=== PATIENT | male | born 1985 | race Caucasian/White ===

== ENCOUNTER 2021-10-10 20:12 | Emergency (ER) | payer SELFPAY ==
[~2021-10-10] VITALS: Ht 182.9 cm; Wt 80.4 kg
== END 2021-10-10 23:15 | disposition home or self-care (01) ==
LOC: ED 20:12
DX: R20.2 Paresthesia of skin (principal); Z88.0 Allergy status to penicillin
CPT/HCPCS: 36415; 70450; 72125; 80053; 81001; 83735; 85025

== ENCOUNTER 2023-09-22 11:33 | Emergency (ER) | payer OTHER ==
[2023-09-22] MEDS ORDERED: SODIUM CHLORIDE 0.9% 1,000 ML IV ONE (14:00)
[2023-09-22 14:06] LABS: BASOPHILS 0.4 % (0-2); HEMATOCRIT 41.2 % (35.0-50.0); HEMOGLOBIN 13.7 g/dL (12.0-18.0); LYMPHOCYTES 31.2 % (24-44); MCH 29.6 (27-36); MCHC 33.3 g/dl (30-36); MCV 88.9 fl (81-99); MONOCYTES 8.1 % (0-12); NEUTROPHILS 59.3 % (39-80); PLATELET COUNT 230 K/uL (140-440); RBC 4.64 M/ul (4.3-5.7); RDW 12.5 (10.5-15.0)
[2023-09-22 14:07] LABS: BILIRUBIN, URINE NEGATIVE (negative); BLOOD/HGB, URINE NEGATIVE (Negative); KETONE, URINE NEGATIVE (Negative); LEUK ESTERASE, URINE NEGATIVE (negative); NITRITE, URINE NEGATIVE (negative)
[2023-09-22 14:24] LABS: ALBUMIN 4.2 g/dL (3.4-5.0); ALBUMIN/GLOBULIN RATIO 1.45 (1.1-2.4); ANION GAP 11.6 (7-21); BILIRUBIN, TOTAL 0.5 ng/dL (0.2-1.0); BUN/CREATININE RATIO 18.84 (6.0-28.6); CALCIUM 8.7 mg/dL (8.5-10.1); CREATININE, SERUM 0.69 mg/dL (0.70-1.30); POTASSIUM 3.6 mmol/L (3.5-5.1); PROTEIN, TOTAL 7.1 g/dL (6.4-8.2)
[2023-09-22] MEDS ORDERED: OMEPRAZOLE20 MG PO (16:01)
[2023-09-22] MEDS ORDERED: ONDANSETRON ODT8 MG PO (16:01)
[2023-09-22 16:20] VITALS: BP 126/84
== END 2023-09-22 16:20 | disposition home or self-care (01) ==
LOC: ED 11:33
PROVIDERS: Emergency Medicine
DX: K29.70 Gastritis, unspecified, without bleeding (principal); Z88.0 Allergy status to penicillin
CPT/HCPCS: 36415; 76705; 80053; 81003; 83690; 85025; J7030